=== PATIENT | female | born 1980 | race Caucasian/White ===

== ENCOUNTER 2020-05-11 10:38 | Day surgery (SDC) | payer MEDICAID, SELFPAY ==
[~2020-05-11] VITALS: Ht 160 cm; Wt 64.9 kg
[2020-05-11] MEDS ORDERED: diphenhydrAMINE 50 MG/ML VIAL ONE (11:16)
[2020-05-11] MEDS ORDERED: fentaNYL citrate 0.05 MG/ML VIAL ONE (11:17)
[2020-05-11] MEDS ORDERED: MIDAZOLAM 2 MG/2 ML VIAL ONE (11:17)
[2020-05-11] MEDS ORDERED: LIDOCAINE VISCOUS 2% 20 ML UDC ONE (11:17)
[2020-05-11] MEDS ORDERED: fentaNYL citrate 0.05 MG/ML VIAL IVP ONE (15:50)
[2020-05-11] MEDS ORDERED: LIDOCAINE VISCOUS 2% 20 ML UDC PO SCH (15:50)
[2020-05-11] MEDS ORDERED: MIDAZOLAM 2 MG/2 ML VIAL IVP ONE (15:50)
== END 2020-05-11 12:35 | disposition home or self-care (01) ==
LOC: MDS 10:38 → MFCC 10:38 → MDS 12:35
PROVIDERS: ATTEND Internal Medicine Gastroenterology
DX: R14.0 Abdominal distension (gaseous) (principal); K21.9 Gastro-esophageal reflux disease without esophagitis; E66.3 Overweight; Z79.899 Other long term (current) drug therapy; Z11.59 Encounter for screening for other viral diseases
CPT/HCPCS: 43239; 81025; J2250; J3010; U0003; J1200